=== PATIENT | female | born 1990 | race African-American/Black ===

== ENCOUNTER 2023-11-05 17:30 | Emergency (ER) | payer OTHER ==
[2023-11-05 18:04] VITALS: BMI 33.6
[2023-11-05 19:35] LABS: BASO % 0.4 % (0-2.0); EOS % 1.5 % (0-4.5); HEMATOCRIT 38.6 % (32.4-45.2); HEMOGLOBIN 12.2 GM/dL (10.7-15.3); LYMPH % 45.2 % (8-40); MCH 25.5 pg (25.7-33.7); MCHC 31.7 g/dl (32.0-36.0); MEAN CELL VOLUME 80.4 fl (80-96); MEAN PLT VOLUME 8.1 fl (7.5-11.1); MONO % 8.6 % (3.8-10.2); NEUT % 44.3 % (42.8-82.8); PLATELET COUNT 376 10^3/uL (134-434); RBC 4.79 M/mm3 (3.60-5.2); RDW 13.6 % (11.6-15.6); WHITE BLOOD COUNT 9.7 K/mm3 (4.0-10.0)
[2023-11-05 19:43] LABS: PROTHROMBIN TIME (PATIENT) 11.6 SEC (9.7-13.0)
[2023-11-05 20:04] LABS: EPI CELLS >36 /uL (0-25.1); HYALINE CASTS 0 /uL (0-3.1); PH,URINE 7.5 (5.0-8.0); URINE APPEARANCE CLOUDY; URINE BACTERIA 929 /uL (0-1359); URINE BILIRUBIN NEGATIVE (NEGATIVE); URINE COLOR RED; URINE GLUCOSE (UA) NEGATIVE (NEGATIVE); URINE KETONE NEGATIVE (NEGATIVE); URINE LEUK ESTERASE 1+ (NEGATIVE); URINE NITRITE NEGATIVE (NEGATIVE); URINE PROTEIN 2+ (NEGATIVE); URINE RBC 1868 /uL (0-23.9); URINE WBC 68 /uL (0-25.8)
[2023-11-05 20:04] LABS: POTASSIUM 4.1 mmol/L (3.5-5.1)
[2023-11-05 20:06] LABS: MAGNESIUM 2.1 mg/dL (1.8-2.4)
[2023-11-05 20:07] LABS: BLOOD UREA NITROGEN 9.1 mg/dL (7-18); CALCIUM 8.9 mg/dL (8.5-10.1)
[2023-11-05 20:08] LABS: ALBUMIN 3.4 g/dl (3.4-5.0)
[2023-11-05 20:09] LABS: CREATININE 0.6 mg/dL (0.55-1.3)
[2023-11-05 20:11] LABS: PHOSPHOROUS 3.3 mg/dL (2.5-4.9); TOT PROT 7.4 g/dl (6.4-8.2)
[2023-11-05 20:12] LABS: BILIRUBIN,TOTAL 0.2 mg/dL (0.2-1)
[2023-11-05] MEDS ORDERED: ACETAMINOPHEN INJECTION 100 ML IVPB ONE (20:36)
[2023-11-05] MEDS ORDERED: ONDANSETRON 4 MG/2 ML VIAL ONE (20:36)
[2023-11-05] MEDS: ACETAMINOPHEN 1000 MG/100 ML BAG IVPB ONE (20:42)
[2023-11-05] MEDS: ONDANSETRON 4 MG/2 ML VIAL IVPUSH ONE (20:42)
[2023-11-06] MEDS ORDERED: KETOROLAC TROMETHAMINE 15 MG/ML VIAL ONE (00:40)
[2023-11-06] MEDS: KETOROLAC TROMETHAMINE 15 MG/ML VIAL IM ONE (00:44)
[2023-11-06 01:14] VITALS: BP 133/77; PULSE 72; RESP 14; TEMP 98.5
== END 2023-11-06 01:32 | disposition left against medical advice (07) ==
LOC: JER 17:30
PROC: 3E033NZ Introduction of Analgesics, Hypnotics, Sedatives into Peripheral Vein, Percutaneous Approach (ICD-10-PCS; principal; 2023-11-05)
PROC: 3E033GC Introduction of Other Therapeutic Substance into Peripheral Vein, Percutaneous Approach (ICD-10-PCS; 2023-11-05)
PROC: 3E0333Z Introduction of Anti-inflammatory into Peripheral Vein, Percutaneous Approach (ICD-10-PCS; 2023-11-06)
DX: R42 Dizziness and giddiness (principal); R10.31 Right lower quadrant pain; R11.0 Nausea; R53.1 Weakness; R53.83 Other fatigue
CPT/HCPCS: 36415; 74177-TC; 80053; 81003; 82150; 83690; 83735; 84100; 84703; 85025; 85610; 86850; 86900; 86901; 87086; 93005; 93010; 99285-25; J0131; Q9967